=== PATIENT | female | born 1950 | race Caucasian/White ===

== ENCOUNTER → 2017-02-04 | Outpatient (CLI) | payer MEDICARE, MEDICAID ==
[~2017-02-04] MED LIST: GADOBUTROL 7.5 MMOL/7.5 ML VIAL ONE; HYDR12.53; LEVO200T; METO-95
== END | disposition home or self-care (01) ==
LOC: CFH 09:41
PROVIDERS: ATTEND Family Medicine
DX: G93.9 Disorder of brain, unspecified (principal)
CPT/HCPCS: 70553; A9585

== ENCOUNTER 2017-08-02 15:36 | Emergency (ER) | payer MEDICARE, MEDICAID ==
[~2017-08-02] VITALS: Ht 157.5 cm; Wt 78.3 kg
[~2017-08-02 15:36] MED LIST changes: -GADOBUTROL 7.5 MMOL/7.5 ML VIAL ONE
[2017-08-02 16:26] LABS: BASOPHILS % (AUTO) 0 % (0-1); EOSINOPHILS # (AUTO) 0.05 x10^3/uL (0-0.4); EOSINOPHILS % (AUTO) 1 % (1-7); LYMPHOCYTES # (AUTO) 0.55 x10^3/uL (1-3.4); LYMPHOCYTES % (AUTO) 5 % (22-44); MD NO; MEAN CORPUSCULAR HEMOGLOBIN 28.2 pg (27.0-34.8); MEAN CORPUSCULAR HGB CONC 32.8 g/dL (32.4-35.8); MEAN CORPUSCULAR VOLUME 86.1 fL (80-100); MEAN PLATELET VOLUME 9.2 fL (7.4-10.4); MONOCYTES % (AUTO) 9 % (2-9); NEUTROPHILS # (AUTO) 8.87 x10^3/uL (1.8-6.8); NEUTROPHILS % (AUTO) 86 % (42-75); PLATELET COUNT 232 x10^3/uL (130-400); RED BLOOD COUNT 4.78 x10^6/uL (3.82-5.3); RED CELL DISTRIBUTION WIDTH 15.9 % (9.6-15.2)
[2017-08-02 16:37] LABS: ANION GAP 6 mmol/L (5-15); CALCIUM 8.9 mg/dL (8.5-10.1); CHLORIDE 101 mmol/L (98-107); CREATININE 0.75 mg/dL (0.55-1.02)
[2017-08-02 19:47] LABS: RAPID INFLUENZA A POSITIVE (Negative); RAPID INFLUENZA B Negative (Negative)
[2017-08-02 20:06] LABS: MICROSCOPIC AUTO
[2017-08-02 20:10] LABS: CULTURE INDICATED? NO
[2017-08-02 20:12] VITALS: BP 172/87
== END 2017-08-02 21:02 | disposition home or self-care (01) ==
LOC: ED 20:07
DX: J09.X2 Influenza due to identified novel influenza A virus with other respiratory manifestations (principal); J40 Bronchitis, not specified as acute or chronic; I10 Essential (primary) hypertension; E03.9 Hypothyroidism, unspecified
CPT/HCPCS: 36415; 71046; 80048; 81001; 82040; 85025; 87400; 93005; 99285

== ENCOUNTER → 2017-12-02 | Outpatient (CLI) | payer MEDICARE, MEDICAID ==
[~2017-12-02] MED LIST changes: +LIDOCAINE-MPF 1%, 2ML ONE; +OMNIPAQUE 300 MG/ML, 10ML VIAL ONE; +ROPivacaine/PF 0.2%, 10 ML ONE; +TRIAMCINOLONE ACETONIDE 40 MG/ML, 1ML ONE
== END | disposition home or self-care (01) ==
LOC: RAD 10:42
PROVIDERS: ATTEND Orthopaedic Surgery
DX: M25.572 Pain in left ankle and joints of left foot (principal); M25.672 Stiffness of left ankle, not elsewhere classified; S93.622A Sprain of tarsometatarsal ligament of left foot, initial encounter; M79.672 Pain in left foot
CPT/HCPCS: 20605; 73721; 77002; J2795; J3301; J3490; Q9967

== ENCOUNTER 2018-07-23 08:59 | Emergency (ER) | payer MEDICARE, MEDICAID ==
[~2018-07-23] VITALS: Ht 157.5 cm; Wt 80.0 kg
[~2018-07-23 08:59] MED LIST changes: +HYDR12.517; -HYDR12.53; -LIDOCAINE-MPF 1%, 2ML ONE; -OMNIPAQUE 300 MG/ML, 10ML VIAL ONE; -ROPivacaine/PF 0.2%, 10 ML ONE; -TRIAMCINOLONE ACETONIDE 40 MG/ML, 1ML ONE
[2018-07-23] MEDS ORDERED: PHENAZOPYRIDINE 200 MG TABLET PO ONE (10:00)
[2018-07-23 10:02] LABS: BASOPHILS # (AUTO) 0.05 x10^3/uL (0-0.1); BASOPHILS % (AUTO) 0 % (0-1); EOSINOPHILS # (AUTO) 0.06 x10^3/uL (0-0.4); EOSINOPHILS % (AUTO) 0 % (1-7); LYMPHOCYTES # (AUTO) 0.91 x10^3/uL (1-3.4); LYMPHOCYTES % (AUTO) 7 % (22-44); MD NO; MEAN CORPUSCULAR HEMOGLOBIN 27.7 pg (27.0-34.8); MEAN CORPUSCULAR HGB CONC 32.6 g/dL (32.4-35.8); MEAN CORPUSCULAR VOLUME 84.9 fL (80-100); MEAN PLATELET VOLUME 9.7 fL (7.4-10.4); MONOCYTES # (AUTO) 0.89 x10^3/uL (0.2-0.8); MONOCYTES % (AUTO) 7 % (2-9); NEUTROPHILS # (AUTO) 11.78 x10^3/uL (1.8-6.8); NEUTROPHILS % (AUTO) 86 % (42-75); PLATELET COUNT 256 x10^3/uL (130-400); RED CELL DISTRIBUTION WIDTH 14.5 % (9.6-15.2)
[2018-07-23 10:13] LABS: ALBUMIN 3.6 g/dL (3.4-5.0); ANION GAP 6 mmol/L (5-15); CALCIUM 8.8 mg/dL (8.5-10.1); CHLORIDE 109 mmol/L (98-107); CREATININE 0.82 mg/dL (0.55-1.02)
[2018-07-23] MEDS ORDERED: PHENAZOPYRIDINE 200 MG TABLET ONE (10:15)
[2018-07-23 10:56] LABS: MICROSCOPIC AUTO
[2018-07-23 10:59] LABS: CULTURE INDICATED? YES
--- NOTE | 2018-07-23 12:06 | NUR ---
CARE FOR DC ONLY PROVIDED. NO ACUTE DISTRESS NOTED. NO IV TO DC. REVIEWED DC INSTRUCTIONS WITH PT, UNDERSTANDING VERBALIZED. PT DECLINED W/C. PT TO LEAVE AMB, GAIT STEADY.
[2018-07-23 12:07] VITALS: BP 151/94
== END 2018-07-23 12:09 | disposition home or self-care (01) ==
LOC: ED 12:03
DX: N30.01 Acute cystitis with hematuria (principal); E03.9 Hypothyroidism, unspecified; I10 Essential (primary) hypertension; Z87.891 Personal history of nicotine dependence
CPT/HCPCS: 36415; 80048; 81001; 82040; 85025; 87077; 87086; 87186; 99283

== ENCOUNTER 2018-10-01 14:42 | Emergency (ER) | payer MEDICARE, MEDICAID ==
[2018-10-01 14:44] VITALS: BP 166/82
--- NOTE | 2018-10-01 15:16 | NUR ---
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 PT STATES SHE HIT THE BACK OF HER HEAD DURING HER FALL ON THE [place] STAND. DENIES LOC, BLOOD THINNERS, OR DAILY ASA USE. PT STATES SHE HAS A HEADACHE AND FEELS TIRED. NO TRAUMA NOTED TO BACK OF HEAD, HOWEVER SHE STATES IT IS TENDER. PT PLACED ON CONT. SPO2, AND BP MONITOR. NEURO EXAM NEGATIVE ON ASSESSMENT
== END 2018-10-01 16:33 | disposition home or self-care (01) ==
LOC: ED 16:03
DX: S09.8XXA Other specified injuries of head, initial encounter (principal); R51 Headache; E03.9 Hypothyroidism, unspecified; I10 Essential (primary) hypertension; Z87.891 Personal history of nicotine dependence; Z88.6 Allergy status to analgesic agent; W19.XXXA Unspecified fall, initial encounter; Y93.89 Activity, other specified; Y92.89 Other specified places as the place of occurrence of the external cause; Y99.8 Other external cause status
CPT/HCPCS: 70450; 99284

== ENCOUNTER → 2018-11-28 | Outpatient (CLI) | payer MEDICARE, MEDICAID ==
[~2018-11-28] MED LIST changes: +OMNIPAQUE 350 MG/ML, 150 ML BOTTLE ONE
== END | disposition home or self-care (01) ==
LOC: CFH 09:23
PROVIDERS: ATTEND Physician Assistant Surgical
DX: N28.1 Cyst of kidney, acquired (principal); R91.8 Other nonspecific abnormal finding of lung field; D73.4 Cyst of spleen; K44.9 Diaphragmatic hernia without obstruction or gangrene; M47.816 Spondylosis without myelopathy or radiculopathy, lumbar region
CPT/HCPCS: 74178; Q9967

== ENCOUNTER 2018-12-07 17:24 | Emergency (ER) | payer MEDICARE, MEDICAID ==
[~2018-12-07] VITALS: Ht 157.5 cm; Wt 86.8 kg
[~2018-12-07 17:24] MED LIST changes: -OMNIPAQUE 350 MG/ML, 150 ML BOTTLE ONE
[2018-12-07 18:34] LABS: BASOPHILS # (AUTO) 0.05 x10^3/uL (0-0.1); BASOPHILS % (AUTO) 1 % (0-1); EOSINOPHILS % (AUTO) 2 % (1-7); LYMPHOCYTES # (AUTO) 1.52 x10^3/uL (1-3.4); LYMPHOCYTES % (AUTO) 15 % (22-44); MD NO; MEAN CORPUSCULAR HEMOGLOBIN 28.1 pg (27.0-34.8); MEAN CORPUSCULAR HGB CONC 33.2 g/dL (32.4-35.8); MEAN CORPUSCULAR VOLUME 84.6 fL (80-100); MEAN PLATELET VOLUME 8.8 fL (7.4-10.4); MONOCYTES # (AUTO) 0.76 x10^3/uL (0.2-0.8); MONOCYTES % (AUTO) 8 % (2-9); NEUTROPHILS # (AUTO) 7.59 x10^3/uL (1.8-6.8); NEUTROPHILS % (AUTO) 75 % (42-75); PLATELET COUNT 331 x10^3/uL (130-400); RED BLOOD COUNT 4.53 x10^6/uL (3.82-5.3); RED CELL DISTRIBUTION WIDTH 13.8 % (9.6-15.2)
[2018-12-07 18:39] LABS: ANION GAP 3 mmol/L (5-15); CALCIUM 9.5 mg/dL (8.5-10.1); CHLORIDE 108 mmol/L (98-107); CREATININE 0.91 mg/dL (0.55-1.02)
--- NOTE | 2018-12-07 18:58 | NUR ---
FROM LOBBY TO ROOM AT THIS TIME
--- NOTE | 2018-12-07 19:06 | NUR ---
First contact w/ pt. States nasal congestion and difficulty breathingx2 weeks w/ associated sob. Denies cp. An occasional cough observed w/ clear phlegm production. Monitoring applied. Bp elevated. Pa aware. Pa at bedside for assessment. All initial results back.
[2018-12-07 19:45] VITALS: BP 19/102
== END 2018-12-07 20:13 | disposition home or self-care (01) ==
LOC: ED 19:15
DX: J06.9 Acute upper respiratory infection, unspecified (principal); I10 Essential (primary) hypertension; Z87.891 Personal history of nicotine dependence
CPT/HCPCS: 36415; 71046; 80048; 85025; 93005; 99284

== ENCOUNTER → 2019-01-10 | Outpatient (CLI) | payer MEDICARE, MEDICAID | END | disposition home or self-care (01) | LOC: CVU 08:30 | PROVIDERS: ATTEND Family Medicine | DX: I35.8 Other nonrheumatic aortic valve disorders (principal); I10 Essential (primary) hypertension | CPT/HCPCS: 0399T; 93306 ==

== ENCOUNTER 2019-02-08 08:29 | Outpatient (CLI) | payer MEDICARE, MEDICAID ==
[~2019-02-08 08:29] MED LIST changes: +REGADENOSON 0.4 MG/5 ML SYRINGE ONE
== END 2019-02-08 23:59 | disposition home or self-care (01) ==
LOC: CFH 08:29
PROVIDERS: ATTEND Family Medicine
DX: R06.00 Dyspnea, unspecified (principal); R07.89 Other chest pain
CPT/HCPCS: 78452; 93017; A9502; J2785

== ENCOUNTER 2019-07-28 14:28 | Emergency (ER) | payer MEDICARE, MEDICAID ==
[~2019-07-28] VITALS: Ht 157.5 cm; Wt 86.8 kg
[~2019-07-28 14:28] MED LIST changes: -REGADENOSON 0.4 MG/5 ML SYRINGE ONE
[2019-07-28] MEDS ORDERED: ONDANSETRON ODT 4 MG ONE ×2 (15:54→17:39)
[2019-07-28 15:55] LABS: RAPID INFLUENZA A Negative (Negative); RAPID INFLUENZA B Negative (Negative)
--- NOTE | 2019-07-28 15:56 | NUR ---
[employer] MANAGER: PT MEDICATED PER EMAR.
[2019-07-28] MEDS ORDERED: ONDANSETRON ODT 4 MG PO ONE (16:00)
[2019-07-28 16:08] LABS: BASOPHILS # (AUTO) 0.02 x10^3/uL (0-0.1); BASOPHILS % (AUTO) 0 % (0-1); EOSINOPHILS # (AUTO) 0.02 x10^3/uL (0-0.4); EOSINOPHILS % (AUTO) 0 % (1-7); LYMPHOCYTES # (AUTO) 1.08 x10^3/uL (1-3.4); LYMPHOCYTES % (AUTO) 9 % (22-44); MD NO; MEAN CORPUSCULAR HEMOGLOBIN 28.1 pg (27.0-34.8); MEAN CORPUSCULAR HGB CONC 32.5 g/dL (32.4-35.8); MEAN CORPUSCULAR VOLUME 86.4 fL (80-100); MEAN PLATELET VOLUME 9.4 fL (7.4-10.4); MONOCYTES # (AUTO) 0.57 x10^3/uL (0.2-0.8); MONOCYTES % (AUTO) 5 % (2-9); NEUTROPHILS % (AUTO) 85 % (42-75); PLATELET COUNT 274 x10^3/uL (130-400); RED BLOOD COUNT 4.92 x10^6/uL (3.82-5.3); RED CELL DISTRIBUTION WIDTH 14.5 % (9.6-15.2)
[2019-07-28 16:13] LABS: ALANINE AMINOTRANSFERASE 22 U/L (12-78); ANION GAP 6 mmol/L (5-15); CALCIUM 9.2 mg/dL (8.5-10.1); CHLORIDE 110 mmol/L (98-107); CREATININE 0.69 mg/dL (0.55-1.02)
[2019-07-28 16:18] LABS: ALKALINE PHOSPHATASE 115 U/L (45-117); BILIRUBIN,TOTAL 0.3 mg/dL (0.2-1.0); TROPONIN I < 0.015 ng/mL (0.000-0.045)
--- NOTE | 2019-07-28 16:56 | NUR ---
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
[2019-07-28 17:06] VITALS: BP 143/68
[2019-07-28] MEDS ORDERED: FLUT1AER INH (17:14)
[2019-07-28] MEDS ORDERED: FLUO10CA7 PO (17:14)
[2019-07-28] MEDS ORDERED: OXCA300T19 PO (17:14)
--- NOTE | 2019-07-28 17:30 | NUR ---
PATIENT RESPIRATIONS ARE EVEN AND UNLABORED. PATIENT IS IN NO ACUTE DISTRESS. VS STABLE. PATIENT RESTINGO N GURNEY WITH CALL LIGHT IN REACH. DENIES FURTHER NEEDS AT THIS TIME.
--- NOTE | 2019-07-28 17:56 | NUR ---
Patient given discharge instructions and they have confirmed that they understand the instructions. Patient ambulatory with steady gait.
== END 2019-07-28 18:03 | disposition home or self-care (01) ==
LOC: ED 18:00
DX: K52.9 Noninfective gastroenteritis and colitis, unspecified (principal); R05 Cough; I10 Essential (primary) hypertension; E03.9 Hypothyroidism, unspecified
CPT/HCPCS: 36415; 71046; 80053; 84484; 85025; 87400; 93005; 99284; Q0162

== ENCOUNTER 2020-05-03 13:28 | Outpatient (CLI) | payer MEDICARE, MEDICAID ==
[~2020-05-03 13:28] MED LIST changes: +ALBU18HF INH; +FLUO10CA14 PO; +FLUT1AER INH; +GABA300C10 PO; -HYDR12.517; +HYDR12.517 PO; -LEVO200T; +LEVO200T PO; -METO-95; +METO-95 PO; +OXCA300T19 PO; +PANT40TA6 PO; +POTA10CA PO
== END 2020-05-03 23:59 | disposition home or self-care (01) ==
LOC: CFH 13:28 → EDSTATUS 05-07 14:30
PROVIDERS: ATTEND Orthopaedic Surgery
DX: S52.121D Displaced fracture of head of right radius, subsequent encounter for closed fracture with routine healing (principal); M21.821 Other specified acquired deformities of right upper arm; X58.XXXD Exposure to other specified factors, subsequent encounter

== ENCOUNTER 2020-05-07 06:05 | Day surgery (SDC) | payer MEDICARE, MEDICAID ==
[~2020-05-07] VITALS: Ht 157.5 cm; Wt 86.0 kg
[2020-05-07] MEDS ORDERED: CHLORHEXIDINE 15 ML UDC MM STA (07:05)
[2020-05-07 07:07] VITALS: BP 163/79
[2020-05-07] MEDS ORDERED: LACTATED RINGERS 1,000 ML IV SCH (08:00)
[2020-05-07] MEDS ORDERED: PROMETHAZINE 25 MG/ML, 1ML IVPush PRN (08:00)
[2020-05-07] MEDS ORDERED: HYDROmorphone 1 MG/ML, 1ML INJ IVPush PRN (08:00)
[2020-05-07] MEDS ORDERED: OXYcodone 5 MG/5 ML ORAL.SOL UDC PO PRN (08:00)
[2020-05-07] MEDS ORDERED: MEPERIDINE/PF 25MG/0.5ML IVPush PRN (08:00)
[2020-05-07] MEDS ORDERED: HYDROcodone/APAP 7.5-325MG/15ML UDC PO PRN (08:00)
[2020-05-07] MEDS ORDERED: EPINEPHRINE 1 MG/ML, 1ML ONE (08:22)
[2020-05-07] MEDS ORDERED: BUPIVACAINE/PF 0.5% ONE (08:22)
[2020-05-07] MEDS ORDERED: FENTANYL PF 100 MCG/2ML ONE ×2 (08:28→10:03)
[2020-05-07] MEDS ORDERED: MIDAZOLAM 1 MG/ML, 2ML ONE (08:28)
[2020-05-07] MEDS ORDERED: ONDANSETRON 2MG/ML, 2ML ONE (08:50)
[2020-05-07] MEDS ORDERED: CEFAZOLIN 1,000 MG ONE (08:50)
[2020-05-07] MEDS ORDERED: PROPOFOL 10 MG/ML, 100ML IV ONE (08:50)
[2020-05-07] MEDS ORDERED: DEXAMETHASONE 4 MG/ML, 1ML ONE (08:50)
[2020-05-07] MEDS ORDERED: EPHEDRINE 50 MG/ML, 1ML ONE (08:50)
[2020-05-07] MEDS: FENTANYL PF 100 MCG/2ML IV PRN ×2 (10:05→10:15)
[2020-05-07] MEDS ORDERED: HYDROcodone/APAP 7.5-325MG/15ML UDC ONE (10:17)
== END 2020-05-07 14:25 | disposition home or self-care (01) ==
LOC: OUT 06:05
PROVIDERS: ATTEND Orthopaedic Surgery
DX: S52.121P Displaced fracture of head of right radius, subsequent encounter for closed fracture with malunion (principal); Z20.828 Contact with and (suspected) exposure to other viral communicable diseases; J44.9 Chronic obstructive pulmonary disease, unspecified; E11.9 Type 2 diabetes mellitus without complications; E07.9 Disorder of thyroid, unspecified; G40.909 Epilepsy, unspecified, not intractable, without status epilepticus; M19.90 Unspecified osteoarthritis, unspecified site; Z79.890 Hormone replacement therapy; Z79.899 Other long term (current) drug therapy; Z87.891 Personal history of nicotine dependence; Z88.5 Allergy status to narcotic agent; X58.XXXD Exposure to other specified factors, subsequent encounter
CPT/HCPCS: 24130; 73070; 87635; 93005; J0171; J0690; J1100; J2405; J2704; J3010; J7120; 76000; J2250

== ENCOUNTER → 2021-04-21 | Outpatient (CLI) | payer MEDICARE, MEDICAID ==
[~2021-04-21] MED LIST changes: -FLUO10CA14 PO; +FLUO10CA15 PO
[2021-04-21 13:35] LABS: BASOPHILS % (AUTO) 1 % (0-1); EOSINOPHILS % (AUTO) 1 % (1-7); LYMPHOCYTES % (AUTO) 15 % (22-44); MEAN CORPUSCULAR HGB CONC 33.7 g/dL (32.4-35.8); MEAN PLATELET VOLUME 9.5 fL (7.4-10.4); MONOCYTES % (AUTO) 8 % (2-9); NEUTROPHILS % (AUTO) 75 % (42-75); PLATELET COUNT 231 x10^3/uL (130-400); RED BLOOD COUNT 4.35 x10^6/uL (3.82-5.3); RED CELL DISTRIBUTION WIDTH 14.4 % (9.6-15.2)
[2021-04-21 13:46] LABS: ALANINE AMINOTRANSFERASE 23 U/L (12-78); ALBUMIN 3.9 g/dL (3.4-5.0); CALCIUM 8.5 mg/dL (8.5-10.1); CREATININE 0.64 mg/dL (0.55-1.02)
[2021-04-21 13:56] LABS: ALKALINE PHOSPHATASE 111 U/L (45-117); BILIRUBIN,TOTAL 0.4 mg/dL (0.2-1.0); TOTAL PROTEIN 7.9 g/dL (6.4-8.2)
[2021-04-21 14:02] LABS: CHLORIDE 106 mmol/L (98-107)
[2021-04-21 14:03] LABS: ANION GAP 5 mmol/L (5-15)
== END | disposition home or self-care (01) ==
LOC: RAD 12:14
PROVIDERS: ATTEND Family Medicine
DX: M47.816 Spondylosis without myelopathy or radiculopathy, lumbar region (principal); E87.6 Hypokalemia; E03.9 Hypothyroidism, unspecified; I10 Essential (primary) hypertension; R53.83 Other fatigue
CPT/HCPCS: 36415; 72114; 80053; 84443; 85025